=== PATIENT | male | born 1965 | race Hispanic/Latino ===

== ENCOUNTER 2024-02-24 20:32 | Observation (INO) | payer BC, MEDICARE ==
[2024-02-24] MEDS ORDERED: Aspirin Chewable 81 MG TAB ONE (21:12)
[2024-02-24 21:21] LABS: #Basophils Less than 0.03 10x3/uL (0.0-0.2); %Basophils 0.3 % (0.0-1.0); %Eosinophils 1.5 % (0.0-10.0); %Lymphocytes 23.7 % (21.0-51.0); %Monocytes 8.4 % (0.0-10.0); Hematocrit 47.8 % (42.0-52.0); Hemoglobin 16.5 g/dL (14.0-18.0); Mean Corpuscular HGB CONC 34.5 g/dL (32.0-36.0); Mean Corpuscular Hemoglobin 27.7 pg (27.0-31.0); Mean Corpuscular Volume 80.3 fL (78.0-98.0); Mean Platelet Volume 11.1 fL (7.4-10.4); Platelet Count 211 10x3/uL (130-400); Red Blood Cell (RBC) Count 5.95 mill/uL (4.70-6.10)
[2024-02-24 21:53] LABS: ALT (SGPT) 32 U/L (8-55); AST (SGOT) 20 U/L (5-34); Albumin 4.1 g/dL (3.5-5.0); Alkaline Phosphatase 149 U/L (40-110); Anion Gap 13 mmol/L (10-20); BUN (Urea Nitrogen) 14 mg/dL (8.4-25.7); Bilirubin, Total 0.6 mg/dL (0.2-1.2); Calc. Creatinine Clearance 0 mL/min (70-130); Calcium 9.2 mg/dL (7.8-10.44); Carbon Dioxide 23 mmol/L (22-29); Chloride 100 mmol/L (98-107); Estimated GFR 57; Globulin 3.3 g/dL (2.4-3.5); Glucose 476 mg/dL (70-105); Potassium 3.4 mmol/L (3.5-5.1); Protein, Total 7.4 g/dL (6.0-8.3); Sodium 133 mmol/L (136-145)
[2024-02-24] MEDS ORDERED: Insulin Regular, Human 100 UNIT/ML 10 ML VIAL ONE (22:09)
[2024-02-24] MEDS ORDERED: Potassium Chloride 20 MEQ TAB ONE (22:10)
[2024-02-24 22:13] LABS: Troponin I Less than 0.010 ng/mL (< 0.028)
[2024-02-24] MEDS ORDERED: Dextrose 5% in Water 1,000 ML IV PRN (23:10)
[2024-02-24] MEDS ORDERED: Dextrose 50% Abboject 50 ML SYRINGE SLOW IVP PRN (23:10)
[2024-02-24] MEDS ORDERED: Glucagon 1 MG/ML KIT IM PRN (23:10)
[2024-02-24] MEDS ORDERED: Ondansetron PF 4 MG/2 ML Vial IVP PRN (23:30)
[2024-02-24] MEDS ORDERED: Ondansetron ODT 4 MG TAB SL PRN (23:30)
[2024-02-24 23:56] LABS: Anion Gap 13 mmol/L (10-20); BUN (Urea Nitrogen) 15 mg/dL (8.4-25.7); Calc. Creatinine Clearance 0 mL/min (70-130); Calcium 8.6 mg/dL (7.8-10.44); Carbon Dioxide 18 mmol/L (22-29); Chloride 104 mmol/L (98-107); Estimated GFR 63; Glucose 439 mg/dL (70-105); Potassium 3.4 mmol/L (3.5-5.1); Sodium 132 mmol/L (136-145)
[2024-02-25 00:01] LABS: Troponin I Less than 0.010 ng/mL (< 0.028)
[2024-02-25] MEDS: Sodium Chloride 0.9% 1,000 ML IV SCH (00:02)
[2024-02-25] MEDS ORDERED: Insulin Lispro 100 UNIT/ML 10 ML VIAL ONE (00:38)
[2024-02-25] MEDS: Insulin Glargine 30 UNITS/0.3 ML VIAL SC SCH ×2 (00:40→21:31)
[2024-02-25] MEDS: Insulin Lispro 100 UNIT/ML 10 ML VIAL SC SCH (00:41)
[2024-02-25 01:37] LABS: Troponin I Less than 0.010 ng/mL (< 0.028)
[2024-02-25 02:52] LABS: Troponin I Less than 0.010 ng/mL (< 0.028)
[2024-02-25 04:49] LABS: Troponin I Less than 0.010 ng/mL (< 0.028)
[2024-02-25 04:56] LABS: Cardiac Risk 3.7 (Less than 4.5)
[2024-02-25] MEDS: Glimepiride 2 MG TAB PO SCH (08:50)
[2024-02-25] MEDS: Insulin Lispro 100 UNIT/ML 10 ML VIAL SC PRN ×2 (08:54→21:31)
[2024-02-25] MEDS ORDERED: Aspirin 81 mg Enteric Coated Tablet ONE (09:50)
[2024-02-25] MEDS ORDERED: Pantoprazole DR 40 MG TAB ONE (09:50)
[2024-02-25] MEDS ORDERED: Enoxaparin 40 MG (0.4 mL) SYRINGE ONE (09:50)
[2024-02-25] MEDS ORDERED: Loratadine 10 MG TAB ONE (09:53)
[2024-02-25] MEDS: Loratadine 10 MG TAB PO SCH (10:01)
[2024-02-25] MEDS: Pantoprazole DR 40 MG TAB PO SCH (10:01)
[2024-02-25] MEDS: Aspirin Chewable 81 MG TAB PO SCH (10:01)
[2024-02-25] MEDS: Enoxaparin 40 MG (0.4 mL) SYRINGE SC SCH (10:01)
[2024-02-25 16:33] VITALS: BMI 31.1
[2024-02-25] MEDS: Atorvastatin Calcium 20 MG TAB PO SCH (21:31)
[2024-02-26] MEDS: Acetaminophen 325 MG TAB PO PRN (06:39)
[2024-02-26] MEDS: Hydrochlorothiazide 25 MG TAB PO SCH (08:51)
[2024-02-26] MEDS: Lisinopril 10 MG TAB PO SCH (08:52)
[2024-02-26] MEDS: Insulin Lispro 100 UNIT/ML 10 ML VIAL SC PRN (13:12)
[2024-02-26 15:26] VITALS: BP 151/88; TEMP 97.5
== END 2024-02-26 16:00 | disposition home or self-care (01) ==
LOC: ERS 20:32 → ERHOLD 23:01 → 2NO 02-25 15:04
PROVIDERS: ADMIT Hospitalist; ATTEND Internal Medicine
PROC: B24BZZZ Ultrasonography of Heart with Aorta (ICD-10-PCS; principal; 2024-02-26)
DX: I48.91 Unspecified atrial fibrillation (principal); I10 Essential (primary) hypertension; E11.65 Type 2 diabetes mellitus with hyperglycemia; Z79.4 Long term (current) use of insulin; Z79.84 Long term (current) use of oral hypoglycemic drugs; Z79.899 Other long term (current) drug therapy
CPT/HCPCS: 36415; 36416; 70450; 71045; 80053; 80061; 82010; 84484; 85025; 93005; 93306; 94760; 96372; G0378; J1650; J1815; J7030